=== PATIENT | male | born 1955 | race African-American/Black ===

== ENCOUNTER 2017-01-29 19:49 | Emergency (ER) | payer MEDICAID ==
[~2017-01-29] VITALS: Ht 175.3 cm; Wt 79.0 kg
[2017-01-29] MEDS ORDERED: SODIUM CHLORIDE 0.9% 1,000 ML IV ONE ×2 (20:38→21:15)
[2017-01-29 20:59] LABS: BASOPHILS % 0.3 % (0.0-2.0); EOSINOPHILS % 0.5 % (0.0-5.0); HEMATOCRIT. 33.2 % (42.0-52.0); HEMOGLOBIN. 11.6 g/dL (14.0-18.0); LYMPHOCYTES % 13.8 % (20.0-50.0); MEAN CORPUSCULAR HEMOGLOBIN 29.6 pg (28.0-32.0); MEAN CORPUSCULAR VOLUME 84.6 fL (80.0-94.0); MEAN PLATELET VOLUME 7.2 fl (7.4-10.4); MONOCYTES % 8.1 % (2.0-8.0); NEUTROPHILS % 77.3 % (40.0-76.0); PLATELET 268 x1000/uL (130-400); RED BLOOD CELL COUNT 3.92 mill/uL (4.7-6.1); RED CELL DISTRIBUTION WIDTH 13.3 % (11.6-14.6)
[2017-01-29 21:12] LABS: CARBON DIOXIDE 20 mEq/L (21-32); CHLORIDE 97 mEq/L (98-107); TROPONIN I < 0.02 ng/mL (0.00-0.04)
[2017-01-29 23:13] VITALS: BP 136/69
== END 2017-01-29 23:15 | disposition home or self-care (01) ==
LOC: ER 20:10
DX: E86.0 Dehydration (principal); E87.1 Hypo-osmolality and hyponatremia; R55 Syncope and collapse; N18.9 Chronic kidney disease, unspecified; E11.22 Type 2 diabetes mellitus with diabetic chronic kidney disease; I12.9 Hypertensive chronic kidney disease with stage 1 through stage 4 chronic kidney disease, or unspecified chronic kidney disease; F17.210 Nicotine dependence, cigarettes, uncomplicated; F12.10 Cannabis abuse, uncomplicated; N17.9 Acute kidney failure, unspecified
CPT/HCPCS: 36415; 80053; 84484; 85025; 93005; 96360; 96361; 99285; 99406; G0482; J7030; Z7610

== ENCOUNTER 2019-08-07 17:21 | Inpatient (IN) | payer MEDICAID ==
[~2019-08-07] VITALS: Ht 177.8 cm; Wt 92.1 kg
[2019-08-07] MEDS ORDERED: SODIUM CHLORIDE 0.9% 1,000 ML IV ONE (17:39)
[2019-08-07] MEDS ORDERED: LEVETIRACETAM 1000MG/100ML 100 ML IV ONE (17:45)
[2019-08-07 18:52] LABS: BASOPHILS % 0.3 % (0.0-2.0); EOSINOPHILS % 0.2 % (0.0-5.0); HEMATOCRIT. 43.1 % (42.0-52.0); HEMOGLOBIN. 15.5 g/dL (14.0-18.0); LYMPHOCYTES % 7.8 % (20.0-50.0); MEAN CORPUSCULAR HEMOGLOBIN 31.6 pg (28.0-32.0); MEAN PLATELET VOLUME 7.4 fl (7.4-10.4); MONOCYTES % 6.2 % (2.0-8.0); NEUTROPHILS % 85.5 % (40.0-76.0); PLATELET 391 x1000/uL (130-400); RED BLOOD CELL COUNT 4.89 mill/uL (4.7-6.1); RED CELL DISTRIBUTION WIDTH 13.4 % (11.6-14.6)
[2019-08-07 18:57] LABS: CHLORIDE 94 mEq/L (98-107)
[2019-08-07 19:05] LABS: ETHANOL BLOOD < 10 mg/dL
[2019-08-07 19:08] LABS: CREATINE KINASE 285 IU/L (39-308)
[2019-08-07 19:11] LABS: PHENOBARBITAL < 2.1 ug/mL (15.0-40.0)
[2019-08-07 19:14] LABS: CARBAMAZEPINE < 0.5 ug/mL (4-12); VALPROIC ACID < 3.0 ug/mL (50-100)
[2019-08-08] VITALS (7 sets, daily range): BP systolic 139–170; BP diastolic 55–72
[2019-08-08] MEDS ORDERED: DEXTROSE 50% WATER 50ML SYRINGE IV PRN (01:15)
[2019-08-08] MEDS ORDERED: CLONIDINE 0.1MG TABLET PO PRN (01:15)
[2019-08-08] MEDS ORDERED: LORAZEPAM 2MG/ML CPJ IV PRN (01:15)
[2019-08-08] MEDS: SODIUM CHLORIDE 0.9% 1,000 ML IV SCH ×2 (04:24→16:02)
[2019-08-08] MEDS: BLOOD SUGAR DIAGNOSTIC STRIP TEST SCH ×4 (07:10→20:47)
[2019-08-08] MEDS: INSULIN LISPRO 100 UNITS/ML SUBCUT SCH ×4 (07:40→21:00)
[2019-08-08 08:21] LABS: CHLORIDE 100 mEq/L (98-107)
[2019-08-08 08:31] LABS: BASOPHILS % 0.4 % (0.0-2.0); EOSINOPHILS % 0.3 % (0.0-5.0); LYMPHOCYTES % 11.6 % (20.0-50.0); MEAN CORPUSCULAR HEMOGLOBIN 30.5 pg (28.0-32.0); MEAN CORPUSCULAR VOLUME 89.2 fL (80.0-94.0); MEAN PLATELET VOLUME 7.8 fl (7.4-10.4); MONOCYTES % 10.1 % (2.0-8.0); NEUTROPHILS % 77.6 % (40.0-76.0); PLATELET 338 x1000/uL (130-400); RED BLOOD CELL COUNT 4.26 mill/uL (4.7-6.1); RED CELL DISTRIBUTION WIDTH 13.6 % (11.6-14.6)
[2019-08-08] MEDS ORDERED: LEVETIRACETAM 500MG/5ML CUP PO SCH (09:00)
[2019-08-08] MEDS: AMLODIPINE 5MG TABLET PO SCH ×2 (16:02→22:44)
[2019-08-08] MEDS: MULTIVITAMINS,THER W-MINERALS TABLET PO SCH (16:27)
[2019-08-08] MEDS: THIAMINE HCL 100MG TABLET PO SCH (16:27)
[2019-08-08] MEDS: NICOTINE 21MG PATCH TD SCH (16:27)
[2019-08-08] MEDS: FOLIC ACID 1MG TABLET PO SCH (16:27)
[2019-08-08] MEDS: BUDESONIDE 0.5MG/2ML NEB HHN SCH (20:14)
[2019-08-08] MEDS: IPRATROPIUM/ALBUTEROL 0.5-3(2.5)MG/3ML NEB HHN PRN (20:15)
[2019-08-08] MEDS: LEVETIRACETAM 500MG/5ML CUP PO SCH (21:46)
[2019-08-09 00:03] VITALS: BP 135/66
[2019-08-09 02:24] LABS: *AMPHETAMINES SCREEN URINE NEGATIVE (NEGATIVE); *BARBITURATES SCREEN URINE NEGATIVE (NEGATIVE); *BENZODIAZEPINES SCREEN URINE NEGATIVE (NEGATIVE); *COCAINE SCREEN URINE NEGATIVE (NEGATIVE); METHADONE URINE SCREEN NEGATIVE (NEGATIVE); OPIATES URINE SCREEN NEGATIVE (NEGATIVE)
[2019-08-09 02:25] LABS: CANNABINOID URINE SCREEN PRESUMTIVE POSITIVE (NEGATIVE); PHENCYCLIDINE URINE SCREEN NEGATIVE (NEGATIVE)
[2019-08-09 04:00] VITALS: BP 143/59
[2019-08-09] MEDS: BLOOD SUGAR DIAGNOSTIC STRIP TEST SCH ×2 (06:24→11:22)
[2019-08-09] MEDS: INSULIN LISPRO 100 UNITS/ML SUBCUT SCH ×2 (06:24→13:01)
[2019-08-09 08:00] VITALS: BP 141/69
[2019-08-09] MEDS: BUDESONIDE 0.5MG/2ML NEB HHN SCH (08:30)
[2019-08-09] MEDS: IPRATROPIUM/ALBUTEROL 0.5-3(2.5)MG/3ML NEB HHN PRN (08:30)
[2019-08-09] MEDS: FOLIC ACID 1MG TABLET PO SCH (08:59)
[2019-08-09] MEDS: THIAMINE HCL 100MG TABLET PO SCH (08:59)
[2019-08-09] MEDS: LEVETIRACETAM 500MG/5ML CUP PO SCH (08:59)
[2019-08-09] MEDS: MULTIVITAMINS,THER W-MINERALS TABLET PO SCH (08:59)
[2019-08-09] MEDS: NICOTINE 21MG PATCH TD SCH (09:00)
[2019-08-09] MEDS: AMLODIPINE 5MG TABLET PO SCH (09:00)
[2019-08-09] MEDS: SODIUM CHLORIDE 0.9% 1,000 ML IV SCH (11:30)
[2019-08-09 12:00] VITALS: BP 158/65
[2019-08-09] MEDS ORDERED: KEPP500 MT (12:05)
[2019-08-09 12:10] VITALS: BP 115/50
== END 2019-08-09 16:30 | disposition home or self-care (01) | DRG 53 ==
LOC: ER 17:29 → EDBEDREQ 19:08 → EDBEDREQTM 20:07 → ENRESERV 23:09 → 8WST 08-08 00:07
PROVIDERS: ADMIT Internal Medicine; ATTEND Internal Medicine
DX: G40.909 Epilepsy, unspecified, not intractable, without status epilepticus (principal); G93.41 Metabolic encephalopathy; E87.1 Hypo-osmolality and hyponatremia; E87.8 Other disorders of electrolyte and fluid balance, not elsewhere classified; F10.10 Alcohol abuse, uncomplicated; I10 Essential (primary) hypertension; F17.210 Nicotine dependence, cigarettes, uncomplicated; E11.9 Type 2 diabetes mellitus without complications; R90.82 White matter disease, unspecified
CPT/HCPCS: 36415; 70551; 80048; 80156; 80165; 80184; 80185; 80305; 80320; 82550; 82962; 93970; 95816; 99291; J1815; J1953; J7030; J7620; J7626; G0480